=== PATIENT | female | born 1960 | race Caucasian/White ===

== ENCOUNTER 2016-12-01 11:44 | Outpatient (CLI) | payer OTHER ==
[2015-02-07 14:30] VITALS: BP 129/75
== END 2016-12-01 11:45 ==
LOC: LAB 11:44
PROVIDERS: ATTEND Family Medicine
DX: I10 Essential (primary) hypertension (principal)
CPT/HCPCS: 36415; 80061

== ENCOUNTER 2018-04-21 09:30 | Emergency (ER) | payer OTHER ==
--- NOTE | 2018-04-21 09:33 | ED Physician Documentation ---
General Adult - HISTORIAN Historian: patient - HPI Stated Complaint: bloating shortness of air Chief Complaint: General Adult Onset: days ago (7) Timing: still present Severity: mild Further Comments: yes (she reports she has had increased abdominal "swelling and pressure" for over a week. She reports swelling "everywhere" she has no new meds. she "might feel a little short of breath" denies any chest pain. No abdominal pain. she reports a normal bowel movement yesterday and no pain today or change in bowel habits. she has passed gas this am) - ROS CONST: no problems CVS/RESP: shortness of breath. denies: chest pain - PAST HX Past History: hypertension Immunizations: UTD Allergies/Adverse Reactions: Allergies Allergy/AdvReac Type Severity Reaction Status Date / Time No Known Drug Allergies Allergy Verified 02/07/15 11:53 - SOCIAL HX Smoking History: non-smoker Alcohol Use: none Drug Use: none - FAMILY HX Family History: No - VITAL SIGNS Vital Signs: Vital Signs Temp Pulse Resp BP Pulse Ox 129/75 02/07/15 14:20 - REVIEWED ASSESSMENTS Nursing Assessment Reviewed: Yes Vitals Reviewed: Yes Progress - Progress Progress: 1225: discussed case with Dr Solis . Plan and results discussed with family. She is wanting to go home and return for any further concerns DG 1300: blood pressure elevated attempt to decrease she has not taken her meds today DG 1330: Blood pressure improved DG ED Results Lab/Radiology - Radiology Radiology Impressions: CT abdomen and pelvis with contrast Date of study: April 21, 2018 CLINICAL HISTORY: Pt states bloating and abdomen pain. (Hx) / ITS.REASON bloating pain Note time : 04/21/2018 12:58:11 PM User : Ruby Guido Pt states bloating and abdomen pain. (DICOM Hx) / ITS.REASON SOB and swelling (Pt comments) TECHNIQUE: 5 mm contiguous axial images of the abdomen and pelvis with IV contrast. With; OMNI 350 95ML FINDINGS: The heart is enlarged. Discoid atelectasis is present in the right middle lobe Gallbladder has been removed. The liver spleen adrenals and pancreas lesion is seen. There is left renal cyst. The right kidney is mildly atrophic. The aorta shows no aneurysm. Retained fecal material within the colon. There are fluid- filled small bowel loops. Diverticulosis is present in the colon. The urinary bladder is distended. The rectal wall is thickened. The bar spondylosis is present with multiple vacuum cleft in the lumbar disc spaces. IMPRESSION: Proctitis Fluid-filled small bowel loops and retained fecal material in the colon. Cannot rule out no obstruction Cardiomegaly Cholecystectomy Left renal cyst. Right renal atrophy and mild malrotation Diverticulosis of the colon Electronically signed on Apr 21, 2018 12:15:40 PM PONY ROUGHER by: Rafita Mascorro General Adult Physical Exam - PHYSICAL EXAM GENERAL APPEARANCE: no distress EENT: eye inspection normal NECK: normal inspection RESPIRATORY: no resp distress, chest non-tender, breath sounds normal CVS: reg rate & rhythm, heart sounds normal, equal pulses, no murmur ABDOMEN: soft, no distension, non-tender, abnormal bowel sounds (decreased left ) BACK: normal inspection, no CVA tenderness SKIN: warm/dry, normal color EXTREMITIES: non-tender, normal range of motion, no evidence of injury, no edema NEURO: oriented X3 Discharge Clincal Impression: Constipation Qualifiers: Constipation type: unspecified constipation type Qualified Code(s): K59.00 - Constipation, unspecified Referrals: Nroa Ahumada MD [Primary Care Provider] - 2 Days Comments: 1. RETURN for any increase in symptoms of pain 2. Follow up with Dr Ahumada Monday for swelling concerns 3. Potassium 10 mEq daily x [address] Ahumada for repeat in lab 4. Mag Citrate 1/2 bottle now if no significant results or no increase in pain repeat 1/2 bottle Condition: Stable Disposition: 01 HOME, SELF-CARE Decision to Admit: NO Date of Decison to Admit: 04/21/18 Decision Time: 13:33
[2018-04-21] MEDS ORDERED: POTASSIUM CHLORIDE 20 MEQ TABLET.ER PO ONE (12:30)
[2018-04-21] MEDS ORDERED: CloNIDine HCL 0.1 MG TABLET PO ONE (12:42)
[2018-04-21 13:39] VITALS: BP 144/105
--- NOTE | 2018-04-21 18:14 | Diagnostic Imaging Report ---
ABIGAIL NUÑEZ [facility] [address] [facility] [address], [place]. [address] Report Submission Date: Apr 21, 2018 11:18:18 AM RESEARCH HYDRAULIC ENGINEER Patient Study Name: PATRICIA ROY Date: Apr 21, 2018 10:30:50 AM RESEARCH HYDRAULIC ENGINEER Modality Type: DX Gender: F Description: CHEST,ABDOMEN : 64 Institution: [facility] Physician: ABIGAIL NUÑEZ Abdomen series with chest History: Shortness of breath and abdominal bloating Findings: A single view of the chest reveals minimal right basilar atelectasis and cardiomegaly. Upright and supine abdominal radiographs reveal moderate right colonic stool, lumbar spondylosis and scoliosis, and cholecystectomy clips. There is no evidence of bowel obstruction or free air. Impression: 1. Abdominal bloating is likely related to obesity. 2. Moderate right colonic stool. 3. Cardiomegaly. Electronically signed on Apr 21, 2018 11:18:18 AM RESEARCH HYDRAULIC ENGINEER by: Boby HERNÁNDEZ
--- NOTE | 2018-04-21 18:15 | Diagnostic Imaging Report ---
ABIGAIL NUÑEZ [facility] [address] [facility] [address] [place], [place]. [address] Report Submission Date: Apr 21, 2018 12:15:40 PM PROMOTIONS PRODUCER Patient Study Name: PATRICIA ROY Date: Apr 21, 2018 11:43:57 AM PROMOTIONS PRODUCER Modality Type: CT\SR Gender: F Description: CT ABD PELVIS W/ CON : 64 Institution: [facility] Physician: ABIGAIL NUÑEZ CT abdomen and pelvis with contrast Date of study: April 21, 2018 CLINICAL HISTORY: Pt states bloating and abdomen pain. (Hx) / ITS.REASON bloating pain Note time : 04/21/2018 12:58:11 PM User : Patricia Guido Pt states bloating and abdomen pain. (DICOM Hx) / ITS.REASON SOB and swelling (Pt comments) TECHNIQUE: 5 mm contiguous axial images of the abdomen and pelvis with IV contrast. With; OMNI 350 95ML FINDINGS: The heart is enlarged. Discoid atelectasis is present in the right middle lobe Gallbladder has been removed. The liver spleen adrenals and pancreas lesion is seen. There is left renal cyst. The right kidney is mildly atrophic. The aorta shows no aneurysm. Retained fecal material within the colon. There are fluid- filled small bowel loops. Diverticulosis is present in the colon. The urinary bladder is distended. The rectal wall is thickened. The bar spondylosis is present with multiple vacuum cleft in the lumbar disc spaces. IMPRESSION: Proctitis Fluid-filled small bowel loops and retained fecal material in the colon. Cannot rule out no obstruction Cardiomegaly Cholecystectomy Left renal cyst. Right renal atrophy and mild malrotation Diverticulosis of the colon Electronically signed on Apr 21, 2018 12:15:40 PM PROMOTIONS PRODUCER by: Rafita HERNÁNDEZ
[2018-04-22 07:28] LABS: MEAN CORPUSCULAR HEMOGLOBIN 31.2 pg (28.0-34.0); eGFR (Non-African) > 60
[2018-04-22 07:29] LABS: BASOPHILS % 0.4 (0.0-1.5); EOSINOPHILS % 5.4 % (0.0-6.8); MONOCYTES % 9.5 % (0.0-11.0); NEUTROPHILS # 3.8 # k/uL (1.4-7.7)
== END 2018-04-21 13:35 | disposition home or self-care (01) ==
LOC: ED 09:30
DX: K59.00 Constipation, unspecified (principal)
CPT/HCPCS: 36415; 74022; 74177; 80053; 83880; 85025; 99283; 99284; A9270; Q9967; S1016

== ENCOUNTER 2018-07-16 11:43 | Day surgery (SDC) | payer OTHER ==
[~2018-07-16 11:43] MED LIST: LACTATED RINGERS 1,000 ML IV.SOLN IV ONE; PROPOFOL 200 MG/20 ML VIAL IV ONE
--- NOTE | 2018-07-17 09:25 | GI Report ---
REFERRING PHYSICIAN: Dr. Nora Ahumada ELECTRICAL CALIBRATOR: Antonino Matthews MD PROCEDURE MEDICATION: Propofol as per anesthesia. INDICATIONS: This is a 57-year-old woman who occasionally has cramps and change in stools. She is referred for her first screening colonoscopy. She has a number of other issues. She has been a cigarette smoker for 25 years. She does have GERD. She does have bipolar disorder. She has had a previous cholecystectomy. PROCEDURE PERFORMED: Colonoscopy. PROCEDURE: An Olympus video colonoscope was advanced to the rectum. In the sigmoid, she has mild diverticular disease. Prep was pretty poor. There is some residual stool we had to lavage and we actually were able to advance all the way to the cecum. The appendiceal orifice and ileocecal valve were normal. On slow withdrawal, ascending colon and transverse colon with no obvious intraluminal lesions noted, though we did have to lavage the wall because of the poor prep. The descending colon and sigmoid with mild diverticular disease and some evidence of melanosis coli. No obvious ischemic changes at present. Retroflexion of the rectum was normal. She does have some internal hemorrhoids. Patient tolerated the procedure well. FINDINGS: 1. Mild diverticular disease of the sigmoid colon. 2. Poor prep. 3. 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 RECOMMENDATIONS: 1. She needs to be on a fiber supplement daily, like Benefiber or Metamucil. 2. Would stop Senokot or whatever laxative preparation she is taking. 3. Discontinue tobacco use. 4. Increase fiber in her diet. 2. Consider re-looking at her colon in 10 years, sooner if clinically indicated. cc: Dr. Nora HERNÁNDEZ
== END 2018-07-16 14:40 | disposition home or self-care (01) ==
LOC: OPSURG 11:43
PROVIDERS: ATTEND Internal Medicine Gastroenterology
DX: K57.30 Diverticulosis of large intestine without perforation or abscess without bleeding (principal); K63.89 Other specified diseases of intestine; K59.04 Chronic idiopathic constipation; K64.9 Unspecified hemorrhoids; K62.5 Hemorrhage of anus and rectum; Z72.0 Tobacco use
CPT/HCPCS: 45378; J2704; J7120; S1016

== ENCOUNTER 2019-01-02 10:50 | Outpatient (CLI) | payer OTHER ==
[2018-12-22 12:45] VITALS: BP 98/57
[2019-01-02 11:42] LABS: APPEARANCE,URINE CLEAR (CLEAR); COLOR,URINE YELLOW (YELLOW); OCCULT BLOOD,URINE NEGATIVE (NEGATIVE); PH URINE 6.5 (5.0 - 8.0); UROBILINOGEN URINE 0.2 Eu (0.2-1.0)
[2019-01-02 12:27] LABS: eGFR (Non-African) > 60
[2019-01-02 12:46] LABS: BASOPHILS % 0.4 % (0.0-1.5); NEUTROPHILS # 3.5 # k/uL (1.4-7.7)
[2019-01-02 12:47] LABS: ANISOCYTOSIS 1+ (NEGATIVE); HYPOCHROMASIA 2+ (NEGATIVE); STOMATOCYTES 1+ (NEGATIVE)
--- NOTE | 2019-01-02 14:57 | Diagnostic Imaging Report ---
CHAD HOLLINGSWORTH [facility] [address] [facility] [address] [address] Report Submission Date: Jan 02, 2019 1:08:10 PM CDT Patient Study Name: PATRICIA ROY Date: Jan 02, 2019 11:05:07 AM CDT Modality Type: DX Gender: F Description: CHEST 2VIEW : 64 Institution: [facility] Physician: CHAD HOLLINGSWORTH Exam: Chest two views. History: Preoperative evaluation. The previous study is unavailable for comparison. Focal eventration of the right hemidiaphragm is noted. Lung love are well aerated. No livier consolidation or effusion is seen. Cardiomegaly is noted. No bony abnormalities are identified. Impression: No livier consolidation or effusion. Cardiomegaly. Electronically signed on Jan 02, 2019 1:08:10 PM CDT by: Osito HERNÁNDEZ
== END 2019-01-02 10:52 ==
LOC: LAB 10:50
PROVIDERS: ATTEND Orthopaedic Surgery Adult Reconstructive Orthopaedic Surgery
DX: Z01.818 Encounter for other preprocedural examination (principal); M16.0 Bilateral primary osteoarthritis of hip; R53.83 Other fatigue; K90.9 Intestinal malabsorption, unspecified; Z79.01 Long term (current) use of anticoagulants; Z51.81 Encounter for therapeutic drug level monitoring
CPT/HCPCS: 36415; 71046; 80053; 81002; 82306; 84443; 85025; 85610; 85651; 85730; 86885; 86900; 87081

== ENCOUNTER 2019-01-07 07:32 | Outpatient (CLI) | payer OTHER ==
[2018-12-22 12:45] VITALS: BP 98/57
== END 2019-01-07 07:34 ==
LOC: RT 07:32
PROVIDERS: ATTEND Orthopaedic Surgery Adult Reconstructive Orthopaedic Surgery
DX: Z01.818 Encounter for other preprocedural examination (principal); M16.0 Bilateral primary osteoarthritis of hip
CPT/HCPCS: 93005

== ENCOUNTER 2019-02-12 08:51 | Outpatient (CLI) | payer OTHER ==
[2018-12-22 12:45] VITALS: BP 98/57
== END 2019-02-12 08:53 ==
LOC: LAB 08:51
PROVIDERS: ATTEND Family Medicine
DX: D50.9 Iron deficiency anemia, unspecified (principal)
CPT/HCPCS: 36415; 85027